=== PATIENT | female | born 1955 | race Caucasian/White ===

== ENCOUNTER 2017-12-08 12:32 | Emergency (ER) | payer BC ==
[~2017-12-08] VITALS: Ht 165.1 cm; Wt 68.0 kg
[~2017-12-08 12:32] MED LIST: NORVASC5 MG PO
[2017-12-08] MEDS ORDERED: FLEXERIL10 MG PO (14:09)
[2017-12-08] MEDS ORDERED: MOTRIN800 MG PO (14:09)
[2017-12-08 14:29] VITALS: BP 155/95
== END 2017-12-08 14:30 | disposition home or self-care (01) ==
LOC: EME 12:32
DX: S70.01XA Contusion of right hip, initial encounter (principal); W00.0XXA Fall on same level due to ice and snow, initial encounter; Y93.K1 Activity, walking an animal
CPT/HCPCS: 73502; 99281; 99283